=== PATIENT | male | born 1950 | race Caucasian/White ===

== ENCOUNTER 2017-11-14 13:17 | Emergency (ER) | payer OTHER ==
[2017-11-14 14:18] LABS: #Eosinphils 0.1 thou/uL (0.0-0.7); #Lymphocytes 1.4 thou/uL (1.20-3.40); #Monocytes 0.4 thou/uL (0.11-0.59); #Neutrophils 2.7 thou/uL (1.40-6.50); %Basophils 0.8 % (0.0-1.0); %Lymphocytes 30.1 % (21.0-51.0); %Monocytes 8.5 % (0.0-10.0); %Neutrophils 57.6 % (42.0-75.0); Hemoglobin 15.7 g/dL (14.0-18.0); Mean Corpuscular HGB CONC 36.2 g/dL (32.0-36.0); Mean Corpuscular Hemoglobin 31.6 pg (27.0-31.0); Mean Corpuscular Volume 87.4 fl (80.0-94.0); Mean Platelet Volume 6.5 fL (7.4-10.4); Platelet Count 156 thou/uL (130-400); RBC Distribution Width 11.4 % (11.5-14.5); Red Blood Cell (RBC) Count 4.97 mill/uL (4.70-6.10); White Blood Cell (WBC) Count 4.7 thou/uL (4.8-10.8)
[2017-11-14 14:27] LABS: PTT 29.1 SEC (22.9-36.1); Prothrombin Time 12.9 SEC (12.0-14.7)
[2017-11-14 14:33] LABS: ALT (SGPT) 28 U/L (8-55); AST (SGOT) 16 U/L (5-34); Albumin 4.1 g/dL (3.4-4.8); Alkaline Phosphatase 70 U/L (40-150); Anion Gap 14 mmol/L (10-20); BUN (Urea Nitrogen) 21 mg/dL (8.4-25.7); Bilirubin, Total 0.7 mg/dL (0.2-1.2); Calc. Creatinine Clearance 0 mL/min (70-130); Calcium 8.9 mg/dL (7.8-10.44); Carbon Dioxide 24 mmol/L (23-31); Chloride 106 mmol/L (98-107); Estimated GFR-MDRD 69; Globulin 2.3 g/dL (2.4-3.5); Glucose 97 mg/dL (80-115); Lipase 21 U/L (8-78); Potassium 4.7 mmol/L (3.5-5.1); Protein, Total 6.4 g/dL (5.8-8.1); Sodium 139 mmol/L (136-145)
[2017-11-14 14:34] LABS: Troponin I Less than 0.010 ng/mL (< 0.028)
[2017-11-14 14:42] LABS: D-Dimer Test Less than 0.27 *mcg/mL (0.27-0.43)
== END 2017-11-14 14:06 | disposition short-term general hospital (02) ==
LOC: BURERS 13:17
DX: R07.81 Pleurodynia (principal); R09.02 Hypoxemia; H53.2 Diplopia; R20.2 Paresthesia of skin; M06.9 Rheumatoid arthritis, unspecified; Z79.899 Other long term (current) drug therapy
CPT/HCPCS: 80053; 82553; 83690; 83880; 84484; 85025; 85379; 85610; 85730; 94760

== ENCOUNTER 2019-10-20 14:24 | Emergency (ER) | payer OTHER | END 2019-10-20 15:18 | disposition home or self-care (01) | LOC: BURERS 14:24 | DX: M54.5 Low back pain (principal); X50.1XXA Overexertion from prolonged static or awkward postures, initial encounter; M06.9 Rheumatoid arthritis, unspecified | CPT/HCPCS: 99283 ==

== ENCOUNTER 2021-07-16 14:56 | Emergency (ER) | payer OTHER ==
[2021-07-16] MEDS ORDERED: Bacitracin 1 PK ONE (15:44)
[2021-07-16] MEDS ORDERED: Lidocaine 1% PF 5 ML VIAL ONE (15:44)
[2021-07-16] MEDS ORDERED: CEFAZOLIN 1 GM VIAL ONE (16:39)
== END 2021-07-16 16:51 | disposition home or self-care (01) ==
LOC: BURERS 14:56
DX: S62.631A Displaced fracture of distal phalanx of left index finger, initial encounter for closed fracture (principal); S61.211A Laceration without foreign body of left index finger without damage to nail, initial encounter; I10 Essential (primary) hypertension
CPT/HCPCS: 12002; 96372; J0690

== ENCOUNTER 2022-06-20 12:43 | Emergency (ER) | payer OTHER ==
[2022-06-20 13:10] LABS: #Eosinphils 0.1 thou/uL (0.0-0.7); #Lymphocytes 1.6 thou/uL (1.20-3.40); #Monocytes 0.7 thou/uL (0.11-0.59); #Neutrophils 3.3 thou/uL (1.40-6.50); %Basophils 0.8 % (0.0-1.0); %Eosinophils 2.6 % (0.0-10.0); %Lymphocytes 27.7 % (21.0-51.0); %Monocytes 11.9 % (0.0-10.0); %Neutrophils 57.1 % (42.0-75.0); Hemoglobin 19.1 g/dL (14.0-18.0); Mean Corpuscular HGB CONC 36.1 g/dL (32.0-36.0); Mean Corpuscular Hemoglobin 32.8 pg (27.0-31.0); Mean Platelet Volume 7.1 fL (7.4-10.4); Platelet Count 245 10x3/uL (130-400); RBC Distribution Width 11.6 % (11.5-14.5); Red Blood Cell (RBC) Count 5.83 mill/uL (4.70-6.10); White Blood Cell (WBC) Count 5.7 10x3/uL (4.8-10.8)
[2022-06-20 13:29] LABS: ALT (SGPT) 23 U/L (8-55); AST (SGOT) 19 U/L (5-34); Albumin 4.8 g/dL (3.4-4.8); Alkaline Phosphatase 66 U/L (40-110); Anion Gap 14 mmol/L (10-20); BUN (Urea Nitrogen) 14 mg/dL (8.4-25.7); Calc. Creatinine Clearance 0 mL/min (70-130); Calcium 9.4 mg/dL (7.8-10.44); Carbon Dioxide 23 mmol/L (23-31); Chloride 102 mmol/L (98-107); Estimated GFR 77; Globulin 2.9 g/dL (2.4-3.5); Glucose 97 mg/dL (83-110); Protein, Total 7.7 g/dL (5.8-8.1); Sodium 135 mmol/L (136-145)
== END 2022-06-20 14:08 | disposition home or self-care (01) ==
LOC: BURERS 12:43
DX: R06.02 Shortness of breath (principal); I10 Essential (primary) hypertension; M06.9 Rheumatoid arthritis, unspecified
CPT/HCPCS: 71046; 80053; 83880; 84484; 85025; 85379; 93005; 94760